=== PATIENT | female | born 1980 | race Caucasian/White ===

== ENCOUNTER 2016-09-06 18:26 | Emergency (ER) | payer MEDICAID, OTHER ==
[2016-09-06 18:31] VITALS: BP 107/65; PULSE 67; RESP 16; TEMP 98.1; O2SAT 98
--- NOTE | 2016-09-06 19:15 | EDPHY ---
H & P Stated Complaint: Opened mouth to eat burger,felt pop on R, now teeth don't align Time Seen by Provider: 09/06/16 18:59 HPI/ROS: CHIEF COMPLAINT: Jaw dislocation HISTORY OF PRESENT ILLNESS: Patient is a 36-year-old female who comes to the emergency department complaining of pain in her right mandibular condyle area. She states that she was opening her mouth wide to eat the 1st bite of a hamburger and she felt a pop on that side. She has been able to completely open and close her mouth without difficulty. She feels like her teeth are lining up normally. She denies any trauma or fall. No head neck or back pain. No paresthesias. No oral trauma. REVIEW OF SYSTEMS: Constitutional: denies: chills, fever, recent illness, recent injury EENTM: See HPI Respiratory: denies: cough, shortness of breath Cardiac: denies: chest pain, irregular heart rate, lightheadedness, palpitations Gastrointestinal/Abdominal: denies: abdominal pain, diarrhea, nausea, vomiting, blood streaked stools Genitourinary: denies: dysuria, frequency, hematuria, pain Musculoskeletal: denies: joint pain, muscle pain Skin: denies: lesions, rash, jaundice, bruising Neurological: denies: headache, numbness, paresthesia, tingling, dizziness, weakness Hematologic/Lymphatic: denies: blood clots, easy bleeding, easy bruising Immunologic/allergic: denies: HIV/AIDS, transplant EXAM: GENERAL: Well-appearing, well-nourished and in no acute distress. HEAD: Atraumatic, normocephalic. EYES: Pupils equal round and reactive to light, extraocular movements intact, sclera anicteric, conjunctiva are normal. ENT: No difficulty completely opening or closing her mouth. Normal alignment of her teeth. No subluxation palpable. No tenderness. No swelling or deformity. Normal dental exam. Patient is able to bite down and break tongue blade. TMs normal, nares patent, Moist mucous membranes. NECK: Normal range of motion, supple without lymphadenopathy or JVD. LUNGS: Breath sounds clear to auscultation bilaterally and equal. No wheezes rales or rhonchi. HEART: Regular rate and rhythm without murmurs, rubs or gallops. ABDOMEN: Soft, nontender, normoactive bowel sounds. No guarding, no rebound. No masses appreciated. BACK: No CVA tenderness, no spinal tenderness, step-offs or deformities EXTREMITIES: Normal range of motion, no pitting or edema. No clubbing or cyanosis. NEUROLOGICAL: Cranial nerves II through XII grossly intact. Normal speech, normal gait. 5/5 strength, normal movement in all extremities, normal sensation PSYCH: Normal mood, normal affect. SKIN: Warm, dry, normal turgor, no visible rashes or lesions. Source: Patient Exam Limitations: No limitations - Personal History LMP (Females 10-55): 8-14 Days Ago Current Tetanus Diphtheria and Acellular Pertussis (TDAP): Yes - Medical/Surgical History Hx Asthma: No Hx Chronic Respiratory Disease: No Hx Diabetes: No Hx Cardiac Disease: No Hx Renal Disease: No Hx Cirrhosis: No Hx Alcoholism: No Other PMH: neg - Family History Significant Family History: No pertinent family hx - Social History Smoking Status: Never smoked Alcohol Use: Sober Drug Use: None Constitutional: Initial Vital Signs Temperature (C) 36.7 C 09/06/16 18:28 Heart Rate 67 09/06/16 18:28 Respiratory Rate 16 09/06/16 18:28 Blood Pressure 107/65 09/06/16 18:28 O2 Sat (%) 98 09/06/16 18:28 O2 Delivery Mode Room Air Allergies/Adverse Reactions: No Known Allergies Allergy (Unverified 09/06/16 18:31) Home Medications: Medication Instructions Recorded NK [No Known Home Meds] 09/06/16 Medical Decision Making ED Course/Re-evaluation: Patient is normal oral exam. No laxity palpated. No tenderness. She still has slight pain with chewing. I suspect that she may have subluxed her jaw but it is now back in place. I advised her to have soft diet and ice her jaw and take ibuprofen. She agrees with this plan. She has a follow-up appoint with her dentist in the next few days. She declines further workup or testing at this time. Differential Diagnosis: Partial list of the Differential diagnosis considered include but were not limited to; jaw dislocation, subluxation, dental tyler, fracture and although unlikely based on the history and physical exam, I also considered infection, neuropathy, temporal arteritis, ischemia. I discussed these differential diagnoses and the plan with the patient as well as the usual and expected course. The patient understands that the diagnosis is provisional and that in medicine we are not always correct and that further workup is often warranted. Usual and customary warnings were given. All of the patient's questions were answered. The patient was instructed to return to the emergency department should the symptoms at all worsen or return, otherwise to followup with the physician as we discussed. Departure - Departure Disposition: Home, Routine, Self-Care Clinical Impression: Closed subluxation of jaw Qualifiers: Encounter type: initial encounter Qualified Code(s): S03.00XA - Dislocation of jaw, unspecified side, initial encounter Condition: Fair Instructions: Temporomandibular Disorder (ED) Referrals: Alfonzo Perea, [Primary Care Provider] - As per Instructions
== END 2016-09-06 19:28 | disposition home or self-care (01) ==
DX: S03.00XA Dislocation of jaw, unspecified side, initial encounter (principal); X58.XXXA Exposure to other specified factors, initial encounter